=== PATIENT | male | born 1940 | race Caucasian/White ===

== ENCOUNTER 2023-10-16 11:40 | Emergency (ER) | payer MEDICARE | END 2023-10-16 14:25 | disposition home or self-care (01) | LOC: MW.ED 11:40 | DX: M54.12 Radiculopathy, cervical region (principal); C80.1 Malignant (primary) neoplasm, unspecified; Z75.8 Other problems related to medical facilities and other health care | CPT/HCPCS: 72125; 72125-26; 99283 ==

== ENCOUNTER 2023-11-03 20:48 | Emergency (ER) | payer MEDICARE ==
[2023-11-03] MEDS: Acetaminophen 500 MG Tab PO ONE (22:48)
[2023-11-03 23:03] LABS: APPEARANCE,URINE CLEAR; BILIRUBIN,URINE NEGATIVE (NEGATIVE); COLOR,URINE YELLOW; GLUCOSE,URINE NEGATIVE (NEGATIVE); KETONES,URINE TRACE mg/dL (NEGATIVE); LEUKOCYTE ESTERASE,URINE NEGATIVE (NEGATIVE); NITRITE,URINE NEGATIVE (NEGATIVE); OCCULT BLOOD,URINE NEGATIVE (NEGATIVE); PH,URINE 5.5 (5.0-8.0); PROTEIN,URINE NEGATIVE (NEGATIVE); UROBILINOGEN,URINE 0.2 EU/dL (<2.0)
[2023-11-04 00:06] LABS: BACTERIA,URINE RARE (NEGATIVE); EPITHELIAL CELLS,URINE RARE (NONE-FEW); RBC,URINE 0-1 (0-2/HPF); WBC,URINE 0-2 (0-5/HPF)
== END 2023-11-04 00:24 | disposition home or self-care (01) ==
LOC: MW.ED 20:48
DX: R10.32 Left lower quadrant pain (principal); Z79.899 Other long term (current) drug therapy; Z75.8 Other problems related to medical facilities and other health care
CPT/HCPCS: 81001; 99283; A9270

== ENCOUNTER 2023-11-11 13:49 | Emergency (ER) | payer MEDICARE ==
[2023-11-11] MEDS: Lidocaine 4% 1 each Patch TOP STA (15:19)
== END 2023-11-11 16:01 | disposition home or self-care (01) ==
LOC: MW.ED 13:49
DX: S76.012A Strain of muscle, fascia and tendon of left hip, initial encounter (principal); Z75.8 Other problems related to medical facilities and other health care; Z79.899 Other long term (current) drug therapy; X50.1XXA Overexertion from prolonged static or awkward postures, initial encounter
CPT/HCPCS: 73521; 99283; A9270

== ENCOUNTER 2023-12-14 13:32 | Emergency (ER) | payer MEDICARE ==
[2023-12-14] MEDS ORDERED: Sodium Chloride 0.9% 2.5 ML Syringe FLUSH PRN (15:37)
[2023-12-14] MEDS ORDERED: Sodium Chloride 0.9% 10 ML Syringe FLUSH PRN (15:37)
[2023-12-14 16:17] LABS: BASOPHILS ABSOLUTE AUTO 0.06 K/uL (0.00-0.20); BASOPHILS PERCENT AUTO 0.5 % (0.0-1.0); EOSINOPHILS ABSOLUTE AUTO 0.25 K/uL (0.00-0.45); EOSINOPHILS PERCENT AUTO 2.2 % (0.0-6.0); HEMATOCRIT 28.6 % (42.0-52.0); HEMOGLOBIN 9.3 g/dL (14.0-18.0); IMMATURE GRAN ABSOLUTE AUTO 0.06 K/uL (0.00-0.05); IMMATURE GRAN PERCENT AUTO 0.5 % (0.0-0.4); LYMPHOCYTES ABSOLUTE AUTO 1.62 K/uL (1.00-4.80); LYMPHOCYTES PERCENT AUTO 14.5 % (24.0-44.0); MEAN CORPUSCULAR HEMOGLOBIN 30.7 pg (28.0-32.0); MEAN CORPUSCULAR HGB CONC 32.5 g/dL (32.0-36.0); MEAN CORPUSCULAR VOLUME 94.4 fL (83.0-99.0); MEAN PLATELET VOLUME 8.4 fL (9.4-12.4); MONOCYTES ABSOLUTE AUTO 0.96 K/uL (0.00-0.80); MONOCYTES PERCENT AUTO 8.6 % (0.0-8.0); NEUTROPHILS ABSOLUTE AUTO 8.21 K/uL (1.80-7.70); NEUTROPHILS PERCENT AUTO 73.7 % (41.0-71.0); PLATELET COUNT,PLT 312 K/uL (150-400); RED BLOOD CELL COUNT 3.03 M/uL (4.52-5.90); WHITE BLOOD CELL COUNT,WBC 11.16 K/uL (3.9-11.3)
[2023-12-14 16:43] LABS: INR 1.02 (0.86-1.11)
[2023-12-14 16:49] LABS: A/G RATIO 0.7 (0.9-1.6); ALBUMIN 2.7 g/dL (3.4-5.0); BILIRUBIN TOTAL 0.3 mg/dL (0.2-1.0); CALCIUM 8.4 mg/dL (8.5-10.1); CARBON DIOXIDE,CO2 27.2 mmol/L (21.0-32.0); EST CRCL DRUG DOSING (CG) 61.03 mL/min; POTASSIUM,K 4.5 mmol/L (3.5-5.1); PROTEIN TOTAL,TP 6.7 g/dL (6.4-8.2)
[2023-12-14] MEDS: Pantoprazole 80 MG in Sodium Chloride 0.9% 10 ML IVPUSH ONE (18:03)
== END 2023-12-14 19:36 ==
LOC: MW.ED 13:32
DX: K92.2 Gastrointestinal hemorrhage, unspecified (principal); Z79.899 Other long term (current) drug therapy
CPT/HCPCS: 36415; 80053; 83690; 85025; 85610; 96374; 99284-25; 99285; C9113; J3490

== ENCOUNTER 2023-12-22 14:20 | Emergency (ER) | payer MEDICARE ==
[2023-12-22] MEDS: oxyCODONE 5 MG Tab PO STA (15:55)
[2023-12-22] MEDS: Ondansetron 4 MG Tab.DIS PO STA (15:55)
[2023-12-22] MEDS: Acetaminophen 500 MG Tab PO STA (15:55)
== END 2023-12-22 19:22 | disposition home or self-care (01) ==
LOC: MW.ED 14:20
DX: C79.51 Secondary malignant neoplasm of bone (principal); C18.9 Malignant neoplasm of colon, unspecified; C34.90 Malignant neoplasm of unspecified part of unspecified bronchus or lung; M89.8X5 Other specified disorders of bone, thigh; G89.3 Neoplasm related pain (acute) (chronic); Z75.8 Other problems related to medical facilities and other health care; Z79.899 Other long term (current) drug therapy
CPT/HCPCS: 70450; 72125; 72128; 72131; 72192; 73700; 99284; A9270

== ENCOUNTER 2023-12-30 02:20 | Emergency (ER) | payer MEDICARE ==
[2023-12-30] MEDS: HYDROmorphone 1 MG/ML Syringe IVPUSH ONE (02:37)
[2023-12-30] MEDS: Ondansetron 4 MG/2 ML SDV IVPUSH ONE (02:37)
[2023-12-30 02:49] LABS: BASOPHILS ABSOLUTE AUTO 0.07 K/uL (0.00-0.20); BASOPHILS PERCENT AUTO 0.6 % (0.0-1.0); EOSINOPHILS ABSOLUTE AUTO 0.11 K/uL (0.00-0.45); EOSINOPHILS PERCENT AUTO 0.9 % (0.0-6.0); HEMATOCRIT 24.8 % (42.0-52.0); HEMOGLOBIN 7.6 g/dL (14.0-18.0); IMMATURE GRAN ABSOLUTE AUTO 0.11 K/uL (0.00-0.05); IMMATURE GRAN PERCENT AUTO 0.9 % (0.0-0.4); LYMPHOCYTES ABSOLUTE AUTO 1.58 K/uL (1.00-4.80); LYMPHOCYTES PERCENT AUTO 13.2 % (24.0-44.0); MEAN CORPUSCULAR HEMOGLOBIN 29.6 pg (28.0-32.0); MEAN CORPUSCULAR HGB CONC 30.6 g/dL (32.0-36.0); MEAN CORPUSCULAR VOLUME 96.5 fL (83.0-99.0); MEAN PLATELET VOLUME 8.4 fL (9.4-12.4); MONOCYTES ABSOLUTE AUTO 1.36 K/uL (0.00-0.80); MONOCYTES PERCENT AUTO 11.4 % (0.0-8.0); NEUTROPHILS ABSOLUTE AUTO 8.71 K/uL (1.80-7.70); PLATELET COUNT,PLT 402 K/uL (150-400); RED BLOOD CELL COUNT 2.57 M/uL (4.52-5.90); WHITE BLOOD CELL COUNT,WBC 11.94 K/uL (3.9-11.3)
[2023-12-30 03:04] LABS: INR 1.11 (0.86-1.11); PTT,PARTIAL THROMBOPLSTIN TIME 35.6 SEC (23.9-30.7)
[2023-12-30] MEDS: Sodium Chloride 0.9% 10 ML Syringe FLUSH PRN (03:21)
[2023-12-30] MEDS: Sodium Chloride 0.9% 2.5 ML Syringe FLUSH PRN (03:21)
[2023-12-30 03:23] LABS: A/G RATIO 0.6 (0.9-1.6); ALBUMIN 2.6 g/dL (3.4-5.0); BILIRUBIN TOTAL 0.4 mg/dL (0.2-1.0); CALCIUM 8.5 mg/dL (8.5-10.1); EST CRCL DRUG DOSING (CG) 61.03 mL/min; MAGNESIUM 2.3 mg/dL (1.8-2.4); POTASSIUM,K 4.1 mmol/L (3.5-5.1); PROTEIN TOTAL,TP 6.9 g/dL (6.4-8.2)
== END 2023-12-30 05:53 | disposition home or self-care (01) ==
LOC: MW.ED 02:20
DX: K59.00 Constipation, unspecified (principal); D64.9 Anemia, unspecified; C34.90 Malignant neoplasm of unspecified part of unspecified bronchus or lung; C79.51 Secondary malignant neoplasm of bone; C79.89 Secondary malignant neoplasm of other specified sites; Z79.891 Long term (current) use of opiate analgesic; Z75.8 Other problems related to medical facilities and other health care
CPT/HCPCS: 36415; 71045; 74176; 80053; 83605; 83690; 83735; 83880; 84484; 85025; 85610; 85730; 93005; 96374; 96375; 99285; J1170; J2405; J3490; 93010; 99284

== ENCOUNTER 2024-01-05 18:09 | Emergency (ER) | payer MEDICARE | END 2024-01-05 21:59 | disposition home or self-care (01) | LOC: MW.ED 18:09 | DX: R60.0 Localized edema (principal); Z79.899 Other long term (current) drug therapy; Z75.8 Other problems related to medical facilities and other health care | CPT/HCPCS: 99283 ==

== ENCOUNTER 2024-01-15 11:21 | Emergency (ER) | payer MEDICARE ==
[2024-01-15 12:13] LABS: INR 1.11 (0.86-1.11); PTT,PARTIAL THROMBOPLSTIN TIME 27.3 SEC (23.9-30.7)
[2024-01-15 12:18] LABS: BASOPHILS ABSOLUTE AUTO 0.03 K/uL (0.00-0.20); BASOPHILS PERCENT AUTO 0.2 % (0.0-1.0); EOSINOPHILS ABSOLUTE AUTO 0.01 K/uL (0.00-0.45); EOSINOPHILS PERCENT AUTO 0.1 % (0.0-6.0); HEMATOCRIT 29.7 % (42.0-52.0); HEMOGLOBIN 9.4 g/dL (14.0-18.0); IMMATURE GRAN ABSOLUTE AUTO 0.39 K/uL (0.00-0.05); IMMATURE GRAN PERCENT AUTO 2.1 % (0.0-0.4); LYMPHOCYTES ABSOLUTE AUTO 0.78 K/uL (1.00-4.80); LYMPHOCYTES PERCENT AUTO 4.2 % (24.0-44.0); MEAN CORPUSCULAR HEMOGLOBIN 28.7 pg (28.0-32.0); MEAN CORPUSCULAR HGB CONC 31.6 g/dL (32.0-36.0); MEAN CORPUSCULAR VOLUME 90.8 fL (83.0-99.0); MEAN PLATELET VOLUME 9.1 fL (9.4-12.4); MONOCYTES ABSOLUTE AUTO 1.13 K/uL (0.00-0.80); MONOCYTES PERCENT AUTO 6.1 % (0.0-8.0); NEUTROPHILS ABSOLUTE AUTO 16.29 K/uL (1.80-7.70); NEUTROPHILS PERCENT AUTO 87.3 % (41.0-71.0); PLATELET COUNT,PLT 365 K/uL (150-400); RED BLOOD CELL COUNT 3.27 M/uL (4.52-5.90); WHITE BLOOD CELL COUNT,WBC 18.63 K/uL (3.9-11.3)
[2024-01-15 12:34] LABS: A/G RATIO 0.6 (0.9-1.6); ALBUMIN 2.4 g/dL (3.4-5.0); BILIRUBIN TOTAL 0.4 mg/dL (0.2-1.0); CALCIUM 8.9 mg/dL (8.5-10.1); CARBON DIOXIDE,CO2 31.3 mmol/L (21.0-32.0); EST CRCL DRUG DOSING (CG) 61.03 mL/min; POTASSIUM,K 4.5 mmol/L (3.5-5.1); PROTEIN TOTAL,TP 6.6 g/dL (6.4-8.2)
[2024-01-15 14:01] LABS: APPEARANCE,URINE SLT CLOUDY; COLOR,URINE RED; GLUCOSE,URINE NEGATIVE (NEGATIVE); KETONES,URINE NEGATIVE (NEGATIVE); LEUKOCYTE ESTERASE,URINE MODERATE (NEGATIVE); NITRITE,URINE POSITIVE (NEGATIVE); OCCULT BLOOD,URINE LARGE (NEGATIVE); PROTEIN,URINE 100 mg/dL (NEGATIVE)
[2024-01-15 14:13] LABS: BILIRUBIN,URINE SMALL (NEGATIVE)
[2024-01-15 14:16] LABS: BACTERIA,URINE FEW (NEGATIVE); EPITHELIAL CELLS,URINE FEW (NONE-FEW); RBC,URINE TOO NUMEROUS TO CT (0-2/HPF)
[2024-01-15] MEDS: cefTRIAXone 1 GM in Sodium Chloride 0.9% 50 ML IV ONE (14:36)
== END 2024-01-15 16:33 | disposition home or self-care (01) ==
LOC: MW.ED 11:21
DX: N39.0 Urinary tract infection, site not specified (principal); K80.20 Calculus of gallbladder without cholecystitis without obstruction; Z79.899 Other long term (current) drug therapy; Z75.8 Other problems related to medical facilities and other health care
CPT/HCPCS: 36415; 70450; 71045; 72125; 74176; 80053; 81001; 83605; 83735; 84484; 85025; 85610; 85730; 87040; 93005; 96374; 99285; J0696; J3490; 93010; 99283